=== PATIENT | male | born 1950 | race Asian ===

== ENCOUNTER 2023-10-31 15:32 | Emergency (ER) | payer OTHER, MEDICARE ==
[~2023-10-31] VITALS: Ht 182.9 cm; Wt 83.9 kg
[2023-10-31 15:43] VITALS: BP_SYST 143; PULSE 85; RESP 18; TEMP 98.4; O2SAT 98
[2023-10-31] MEDS: HYDROcodone/ACETAMIN 5-325 MG TAB (NORCO/ VICODIN) PO ONE (16:34)
[2023-10-31] MEDS ORDERED: HYDR-3917 PO (17:48)
[2023-10-31 18:01] VITALS: BP_SYST 138; PULSE 82; RESP 16; TEMP 98.3; O2SAT 99
== END 2023-10-31 18:01 | disposition home or self-care (01) ==
LOC: SED 15:32
DX: M54.50 Low back pain, unspecified (principal); Z85.858 Personal history of malignant neoplasm of other endocrine glands; Z79.899 Other long term (current) drug therapy
CPT/HCPCS: 72131; 99284